=== PATIENT | male | born 1990 | race Two or more races ===

== ENCOUNTER → 2021-01-29 | Day surgery (SDC) | payer BC ==
[2021-01-24 15:03] LABS: Basophils # (auto) 0.1 10 ^3/uL (0-0.2); Eosinophils # (auto) 0.1 10 ^3/uL (0-0.8); Eosinophils % (auto) 2.2 % (0.0-7.0); Hematocrit 46.9 % (41.0-53.0); Hemoglobin 16.6 g/dL (13.5-17.5); Lymphocytes # (auto) 1.4 10 ^3/uL (0.4-5.4); Lymphocytes % (auto) 27.4 % (10.0-50.0); Mean Corpuscular Hemoglobin 33.6 pg (28.0-32.0); Mean Corpuscular Hgb Conc. 35.3 g/dL (32.0-36.0); Mean Corpuscular Volume 95.3 fL (80.0-100.0); Monocytes # (auto) 0.4 10 ^3/uL (0-1.3); Monocytes % (auto) 6.8 % (0.0-12.0); Neutrophils # (auto) 3.3 10 ^3/uL (1.6-8.6); Neutrophils % (auto) 62.6 % (37.0-80.0); Platelet Count (auto) 214 10^3/uL (140-450); Red Blood Cells 4.92 10^6/uL (4.5-5.90); Red Cell Distribution Width 12.4 % (11.8-14.3); White Blood Cell 5.3 10^3/uL (4.4-10.8)
[2021-01-24 15:12] LABS: Urine Bacteria NONE SEEN /hpf (None Seen); Urine Blood TRACE /uL (Negative); Urine Mucus FEW (None Seen); Urine Specific Gravity 1.026 (1.001-1.035); Urine WBC 1 /hpf (0 - 3)
[2021-01-24 15:22] LABS: Albumin 4.3 g/dL (3.4-5.0); Calcium 9.6 mg/dL (8.5-10.1); Potassium 4.5 mmol/L (3.5-5.1)
[2021-01-24 15:25] LABS: BUN/Creatinine Ratio 12.6; Total Protein 7.9 g/dL (6.4-8.2)
[2021-01-24 15:48] LABS: INR 1.03 (0.9-1.15); Partial Thromboplastin Time 28.2 sec (23.0-31.2)
[~2021-01-29] VITALS: Ht 175.3 cm; Wt 79.4 kg
[~2021-01-29] MED LIST: BUPIVACAINE 0.25% INJ 50ML VIAL ONE; GLYCOPYRROLATE 0.2 MG/ML 1ML VIAL ONE; HYDROmorphone HCL 2 MG/ML VL IV PRN; HYDROmorphone HCL 2 MG/ML VL ONE; KETOROLAC TROMETH 30 MG/ML 1ML VIAL IV ONE; METOCLOPRAMIDE HCL 5MG/ml INJ 2ml VIAL IV PRN; MIDAZOLAM HCL 1MG/1ML-2 ML VIAL ONE; ONDANSETRON HCL 4 MG/2 ML VIAL IV PRN; PROPOFOL 10 MG/ML 20 ML IV ONE; ROCURONIUM 10MG/ML 10ML VIAL IV ONE; ceFAZolin 1GM/50ML 50 ML IV ONE; ePHEDrine SULFATE 50 MG/ML AMP ONE
[2021-01-29 13:30] VITALS: BP 119/59
== END | disposition home or self-care (01) ==
LOC: SUR 10:09
PROVIDERS: ATTEND Surgery
DX: K40.90 Unilateral inguinal hernia, without obstruction or gangrene, not specified as recurrent (principal); Z20.822 Contact with and (suspected) exposure to COVID-19; Z98.890 Other specified postprocedural states; Z79.899 Other long term (current) drug therapy
CPT/HCPCS: 36415; 49505; 80053; 81001; 85025; 85610; 85730; J0690; J1170; J2250; J2704; J3490; Q4100; U0003

== ENCOUNTER 2022-07-13 11:47 | Emergency (ER) | payer OTHER ==
[~2022-07-13] VITALS: Ht 175.3 cm; Wt 84.9 kg
[2022-07-13 16:53] LABS: Albumin 4.4 g/dL (3.4-5.0); Calcium 9.2 mg/dL (8.5-10.1); Potassium 4.2 mmol/L (3.5-5.1)
[2022-07-13 16:55] LABS: BUN/Creatinine Ratio 15.8; Bilirubin, Total 0.6 mg/dL (0.2-1.0); Total Protein 7.7 g/dL (6.4-8.2)
[2022-07-13] MEDS: IOHEXOL 300 MG/ML 100ML BOTTLE IJ ONE (20:49)
[2022-07-13] MEDS ORDERED: IBUP800T26 PO (21:13)
[2022-07-13] MEDS: KETOROLAC TROMETH 30 MG/ML 1ML VIAL IV ONE (21:48)
[2022-07-13 21:49] VITALS: BP 115/73
== END 2022-07-13 21:58 | disposition home or self-care (01) ==
LOC: ER 11:47
DX: S09.90XA Unspecified injury of head, initial encounter (principal); S62.301A Unspecified fracture of second metacarpal bone, left hand, initial encounter for closed fracture; S80.211A Abrasion, right knee, initial encounter; R07.89 Other chest pain; V23.4XXA Motorcycle driver injured in collision with car, pick-up truck or van in traffic accident, initial encounter; Y93.89 Activity, other specified; Y92.89 Other specified places as the place of occurrence of the external cause; Y99.8 Other external cause status
CPT/HCPCS: 36415; 70450; 71046; 71101; 73110; 73130; 74177; 80053; 96374; 99285; J1885; Q9967